=== PATIENT | female | born 1940 | race Caucasian/White ===

== ENCOUNTER 2018-06-20 10:09 | Emergency (ER) | payer OTHER, BC ==
[~2018-06-20] VITALS: Ht 160 cm; Wt 66.7 kg
[~2018-06-20 10:09] MED LIST: ALIGN4 MG PO; CELEBREX 200 M200 M1 PO; LIBRIUM PO; PAXIL 20 MG TAB20 M1 PO; PREDNISONE 20 M20 MG PO; PRILOSEC 20 MG20 MG PO; TOUJEO SOL300 UNIT/1 SUBQ; VITAMIN D2000 UNIT PO
[2018-06-20 10:33] LABS: ABSOLUTE NEUTROPHILS 10.1 thou/uL (1.4-8.2); BASOPHILS 1.2 % (0.0-2.0); EOSINOPHILS 0.9 % (0.0-3.0); HEMATOCRIT 34.5 % (37.0-47.0); LYMPHOCYTES 17.9 % (24.0-44.0); MCH 34.4 pg (26.0-34.0); MCHC 34.8 g/dL (28.0-37.0); MCV 98.7 fL (80.0-100.0); MONOCYTES 5.7 % (1.0-8.0); PLATELET COUNT 290 thou/uL (150-400); POLYS 74.3 % (36.0-66.0); RDW 16.7 % (10.5-14.5); WBC 13.5 thou/uL (4.0-11.0)
[2018-06-20 10:41] LABS: ANION GAP 12 mmol/L (7-16); BUN 10 mg/dL (7-18); CALCIUM 9.2 mg/dL (8.5-10.1); CHLORIDE 100 mmol/L (98-107); CO2 26 mmol/L (21-32); GLUCOSE 230 mg/dL (74-106); POTASSIUM 3.3 mmol/L (3.5-5.1); SODIUM 138 mmol/L (136-145)
[2018-06-20 10:49] LABS: ALBUMIN 3.7 g/dL (3.4-5.0); SGOT 20 U/L (15-37); SGPT 18 U/L (30-65); TOTAL BILIRUBIN 0.4 mg/dL (<0.1-1.0); TOTAL PROTEIN 7.4 g/dL (6.4-8.2); TROPONIN-I <0.06 ng/mL (<0.06)
[2018-06-20 11:14] LABS: PROTIME 10.5 Seconds (9.3-11.4)
[2018-06-20 12:03] LABS: URINE BILIRUBIN NEGATIVE (Negative); URINE BLOOD 3+ (Negative); URINE CLARITY CLEAR; URINE COLOR YELLOW; URINE GLUCOSE-RANDOM* NEGATIVE (Negative); URINE KETONES TRACE (Negative); URINE LEUKOCYTES-REFLEX TRACE (Negative); URINE NITRITE-REFLEX NEGATIVE (Negative); URINE PROTEIN (DIPSTICK) NEGATIVE (Negative); URINE UROBILINOGEN 0.2 E.U./dl (0.2-1.0)
[2018-06-20 12:07] LABS: URINE WBC-REFLEX 0-5 Rare /HPF (0-5)
[2018-06-20 12:08] LABS: BACTERIA-REFLEX None Seen /HPF (None Seen); CASTS None Seen /LPF (None Seen); CRYSTALS None Seen /LPF (None Seen); SQUAMOUS 0-3 Few /LPF (0-3); URINE RBC 3-10 Few /HPF (0-2)
[2018-06-20] MEDS ORDERED: SYNTHROID50 MCG PO (13:23)
[2018-06-20] MEDS ORDERED: LOTRIMIN AF12 GM TOP (13:23)
[2018-06-20 13:24] VITALS: BP 130/65
--- NOTE | 2018-06-21 08:19 | EKG ---
[address] [address] ELECTROCARDIOGRAM REPORT Name: JACKY REED [id number] ������������������ Admission: 06/20/18 ������������������ Attend Phys: Discharge: 06/20/18 ������������������ Date of : 40 Report #: [id number] ����������������������������������������������������������������� [id number] THIS REPORT FOR: //name// [facility] ED Test Date: 2018-06-20 Test Time: 10:20:38 Pat Name: JACKY REED Department: Room: Gender: F Mobile Phone Salesperson: : 1940 Requested By: Ciera Payne Order Number: [id number] MD: Dre Polk Measurements Intervals [place] Rate: 76 P: 3 AR: 145 QRS: 14 QRSD: 89 T: 46 QT: 389 QTc: 438 Interpretive Statements Sinus rhythm No previous ECG available for comparison Electronically Signed On 06-21-2018 8:18:57 CDT by Dre Polk [email or web address] ��������������������������������������������� <ELECTRONICALLY SIGNED> ���������������������������������������� By: Dre Polk MD ��������������������������������������������� 06/21/18 0818 1020 1020 Dre Polk MD /JON
== END 2018-06-20 13:39 | disposition home or self-care (01) ==
LOC: ER 10:09
PROVIDERS: Physician Assistant
DX: B35.6 Tinea cruris (principal); E03.9 Hypothyroidism, unspecified; R00.2 Palpitations; M79.7 Fibromyalgia; E11.9 Type 2 diabetes mellitus without complications; Z79.4 Long term (current) use of insulin; Z88.6 Allergy status to analgesic agent; Z88.8 Allergy status to other drugs, medicaments and biological substances

== ENCOUNTER 2020-04-20 10:30 | Emergency (ER) | payer OTHER, BC ==
[~2020-04-20] VITALS: Ht 160 cm; Wt 66.7 kg
[~2020-04-20 10:30] MED LIST changes: +LOTRIMIN AF12 GM TOP; +SYNTHROID50 MCG PO
[2020-04-20 12:19] LABS: ABSOLUTE NEUTROPHILS 13.2 thou/uL (1.4-8.2); BASOPHILS 0.6 % (0.0-2.0); EOSINOPHILS 0.3 % (0.0-3.0); HEMATOCRIT 33.8 % (37.0-47.0); HEMOGLOBIN 11.1 gm/dL (12.0-15.0); LYMPHOCYTES 9.7 % (24.0-44.0); MCH 32.2 pg (26.0-34.0); MCHC 32.8 g/dL (28.0-37.0); MCV 98.4 fL (80.0-100.0); MONOCYTES 4.5 % (1.0-8.0); PLATELET COUNT 377 thou/uL (150-400); POLYS 84.9 % (36.0-66.0); RBC 3.44 mil/uL (4.20-5.00); RDW 17.7 % (10.5-14.5); WBC 15.5 thou/uL (4.0-11.0)
[2020-04-20 12:31] LABS: ANION GAP 9 mmol/L (7-16); BUN 8 mg/dL (7-18); CALCIUM 9.5 mg/dL (8.5-10.1); CHLORIDE 93 mmol/L (98-107); CO2 27 mmol/L (21-32); GLUCOSE 387 mg/dL (74-106); POTASSIUM 4.3 mmol/L (3.5-5.1); SODIUM 129 mmol/L (136-145)
[2020-04-20 12:33] LABS: DIRECT BILIRUBIN 0.1 mg/dL (<0.1-0.2); TOTAL BILIRUBIN 0.6 mg/dL (0.2-1.0); TOTAL PROTEIN 7.8 g/dL (6.4-8.2)
[2020-04-20 12:40] LABS: TROPONIN-I <0.06 ng/mL (<0.06)
--- NOTE | 2020-04-20 12:48 | EKG ---
[address] [place] [address] [facility] [place] [address] ELECTROCARDIOGRAM REPORT Name: JACKY REED [facility] [id number] Admission: 04/20/20 Attend Phys: Discharge: Date of : 40 Report #: [id number] [facility] ED Test Date: 2020-04-20 Test Time: 11:41:56 Pat Name: JACKY REED Department: Room: Gender: F Delivery Driver/Customer Service: BELLA : 1940 Requested By: Robin Varghese Order Number: [id number] MD: Dre Polk Measurements Intervals [place] Rate: 85 P: 17 [place]: 141 QRS: -3 QRSD: 82 T: 40 QT: 338 QTc: 402 Interpretive Statements Sinus rhythm Abnormal R-wave progression, early transition Compared to ECG 06/20/2018 10:20:38 No significant changes Electronically Signed On 04-20-2020 12:48:40 DINKEY MOTOR OPERATOR by Dre Polk [email or web address] <ELECTRONICALLY SIGNED> By: Dre Polk MD 04/20/20 1248 1141 1141 Dre Polk MD /JON
[2020-04-20 13:32] VITALS: BP 124/60
== END 2020-04-20 13:33 | disposition left against medical advice (07) ==
LOC: ER 10:30
PROVIDERS: Nurse Practitioner
DX: E87.1 Hypo-osmolality and hyponatremia (principal); D72.829 Elevated white blood cell count, unspecified; E11.65 Type 2 diabetes mellitus with hyperglycemia; M79.7 Fibromyalgia; Z88.1 Allergy status to other antibiotic agents; Z88.6 Allergy status to analgesic agent; Z88.8 Allergy status to other drugs, medicaments and biological substances; Z79.899 Other long term (current) drug therapy; Z79.4 Long term (current) use of insulin

== ENCOUNTER 2020-09-04 17:51 | Inpatient (IN) | payer OTHER, BC ==
[~2020-09-04] VITALS: Ht 160 cm; Wt 57.8 kg
[2020-09-04 17:52] VITALS: BP 162/73
--- NOTE | 2020-09-04 19:14 | NUR ---
PER DAYSHIFT RN, PT HAS REFUSED BLOOD DRAW AND URINE SAMPLE SINCE ARRIVAL.
[2020-09-04 19:49] LABS: HEMATOCRIT 35.5 % (37.0-47.0); MCH 33.7 pg (26.0-34.0); MCV 99.1 fL (80.0-100.0); PLATELET COUNT 324 thou/uL (150-400); RBC 3.58 mil/uL (4.20-5.00); RDW 15.6 % (10.5-14.5)
[2020-09-04 19:52] LABS: CALCIUM 9.1 mg/dL (8.5-10.1); CREATININE 0.9 mg/dL (0.6-1.0); POTASSIUM 3.8 mmol/L (3.5-5.1)
[2020-09-04 20:07] LABS: ABSOLUTE NEUTROPHILS 15.8 thou/uL (1.4-8.2)
[2020-09-04 20:08] LABS: PLATELET ESTIMATE NORMAL
[2020-09-04 21:23] LABS: URINE BILIRUBIN NEGATIVE (Negative); URINE BLOOD TRACE (Negative); URINE CLARITY CLEAR; URINE COLOR YELLOW; URINE GLUCOSE-RANDOM* NEGATIVE (Negative); URINE KETONES 1+ (Negative); URINE LEUKOCYTES-REFLEX NEGATIVE (Negative); URINE NITRITE-REFLEX NEGATIVE (Negative); URINE PROTEIN (DIPSTICK) NEGATIVE (Negative); URINE UROBILINOGEN 0.2 E.U./dl (0.2-1.0)
[2020-09-04 21:30] VITALS: BP 191/74
[2020-09-04 21:45] VITALS: BP 191/74
[2020-09-05] VITALS (10 sets, daily range): BP systolic 111–145; BP diastolic 54–96
[2020-09-05] MEDS ORDERED: LEVO-T75 MCG PO (02:54)
[2020-09-05] MEDS ORDERED: CHLORDIAZEPOXIDE5 M2 PO (02:59)
[2020-09-05] MEDS ORDERED: TOUJEO MAX300 UNIT/1 SUBQ (03:14)
[2020-09-05] MEDS ORDERED: APAP W/CODEINE1 TA2 PO (03:15)
--- NOTE | 2020-09-05 03:59 | NUR ---
RECEIVED CARE OF THIS PATIENT AT 2240 VIA CART FROM ED ACCOMPANINED BY ED VALERIE. C/O PAIN, MED GIVEN. ALYSE PATENT. NPO SINCE [place] FOR SURGERY ON L HIP IN AM. ALERT AND ORIENTED X4. REMAINS ON BED REST. SLEPT LITTLE THIS SHIFT.
[2020-09-05 05:20] LABS: HEMATOCRIT 34.9 % (37.0-47.0); HEMOGLOBIN 11.9 gm/dL (12.0-15.0); MCH 34.3 pg (26.0-34.0); MCHC 34.1 g/dL (28.0-37.0); MCV 100.3 fL (80.0-100.0); RBC 3.48 mil/uL (4.20-5.00); RDW 15.6 % (10.5-14.5)
[2020-09-05 05:47] LABS: CALCIUM 8.7 mg/dL (8.5-10.1); CREATININE 0.9 mg/dL (0.6-1.0); POTASSIUM 3.8 mmol/L (3.5-5.1)
--- NOTE | 2020-09-05 08:09 | NUR ---
ORDERS RECEIVED FOR PT EVAL AND TREAT. Pt S/P FALL W/ L FEMORAL NECK FRACTURE. PLAN IS FOR HIP HEMIARTHROPLASTY THIS MORNING. WILL NEED NEW PT ORDERS S/P SURGICAL INTERVENTION TO INITIATE PT W/ Pt. THANK YOU.
--- NOTE | 2020-09-05 08:18 | NUR ---
ASSUMED PT CARE AROUND 0700. PT ALERT X ORIENTED X 4. ON ROOM AIR. NPO SINCE MIDNIGHT FOR SURGERY. VSS. CULLEN IN PLACE. IV LEFT FA.
[2020-09-05 11:10] LABS: HEMATOCRIT 35.4 % (37.0-47.0); HEMOGLOBIN 11.5 gm/dL (12.0-15.0); MCH 33.2 pg (26.0-34.0); MCHC 32.6 g/dL (28.0-37.0); MCV 101.8 fL (80.0-100.0); RBC 3.48 mil/uL (4.20-5.00); RDW 15.7 % (10.5-14.5)
[2020-09-05 11:20] LABS: WBC 36.3 thou/uL (4.0-11.0)
--- NOTE | 2020-09-05 11:23 | EKG ---
[address] [address] ELECTROCARDIOGRAM REPORT Name: JACKY REED Room #: 439-P [facility] IN ..#: [id number] Admission: 09/04/20 Attend Phys: Navarro Poon MD Discharge: Date of : 40 Report #: [id number] [facility] ED Test Date: 2020-09-04 Test Time: 20:35:34 Pat Name: JACKY REED Department: Room: 43 Gender: F Sharepoint Analyst: HOSSEIN : 1940 Requested By: Shira Lopez Order Number: [id number] MD: Dre Polk Measurements Intervals [place] Rate: 83 P: 64 [place]: 147 QRS: 24 QRSD: 87 T: 56 QT: 384 QTc: 452 Interpretive Statements Sinus rhythm Compared to ECG 04/20/2020 11:41:56 No significant changes Electronically Signed On 09-05-2020 11:23:46 CDT by Dre Polk [email or web address] <ELECTRONICALLY SIGNED> By: Dre Polk MD 09/05/20 1123 2035 34 Dre Polk MD /JON
[2020-09-05 13:52] LABS: HEMATOCRIT 33.1 % (37.0-47.0); HEMOGLOBIN 10.8 gm/dL (12.0-15.0); MCH 32.6 pg (26.0-34.0); MCHC 32.5 g/dL (28.0-37.0); MCV 100.3 fL (80.0-100.0); PLATELET COUNT 351 thou/uL (150-400); RDW 15.9 % (10.5-14.5); WBC 32.9 thou/uL (4.0-11.0)
[2020-09-05 14:09] LABS: ABSOLUTE NEUTROPHILS 30.6 thou/uL (1.4-8.2)
[2020-09-06 03:20] VITALS: BP 125/49
[2020-09-06 05:11] LABS: MCH 34.2 pg (26.0-34.0); MCHC 33.8 g/dL (28.0-37.0); MCV 101.3 fL (80.0-100.0); RBC 2.56 mil/uL (4.20-5.00)
[2020-09-06 05:31] LABS: HEMOGLOBIN 8.8 gm/dL (12.0-15.0); WBC 16.6 thou/uL (4.0-11.0)
--- NOTE | 2020-09-06 05:31 | NUR ---
PT LYING IN BED. LORTAB PROVIDING PAIN RELIEF. DENIES NAUSEA. RESTING CVOMFORTABLY. NO NEEDS VOICED. CALL LIGHT WITHIN REACH. FREQUENT OBSERVATION.
[2020-09-06 07:20] VITALS: BP 102/39
--- NOTE | 2020-09-06 11:11 | NUR ---
Assumed care of pt at 0700. Pt a&ox4. Dressing c/d/i. [place] catheter in place. Pain controlled with prn pain meds. DOLORES hose and SCDs in place. Call light within reach. Fall precautions in place. Will continue to monitor.
[2020-09-06 15:40] VITALS: BP 125/40
[2020-09-06 19:41] VITALS: BP 115/53
--- NOTE | 2020-09-07 01:25 | NUR ---
ASSESSED AT START OF SHIFT. PT RESTING IN BED. BSG CHECKED AND INSULIN GIVEN. FOLLEY INTACT AND DRAINING. PAIN MEDS GIVEN PRIOR TO ARRIVAL. PT DENIES N/V. FALL PREC IN PLACE, SCD'S ON ESTEPHANIE LOWER EXT. PT RESTING WELL NO FURTHER SIGNS OF DISCOMFORT WILL CONT TO MONITOR.
[2020-09-07 04:02] VITALS: BP 119/48
[2020-09-07 05:48] LABS: HEMATOCRIT 23.9 % (37.0-47.0); HEMOGLOBIN 8.1 gm/dL (12.0-15.0); MCH 34.3 pg (26.0-34.0); MCV 100.8 fL (80.0-100.0); RBC 2.37 mil/uL (4.20-5.00); RDW 15.7 % (10.5-14.5); WBC 13.1 thou/uL (4.0-11.0)
[2020-09-07 08:00] VITALS: BP 117/48
--- NOTE | 2020-09-07 10:46 | NUR ---
ASSUMED CARE OF PT AT 0700 THIS MORNING. PT IS ADMITTED FOR LEFT HIP FX AND REPAIR. WEIGHT TOLERATED. PT IS FROM HOME AND IS VERY SLOW TO RESPOND TO QUESTIONS AND HAS TO BE REDIRECTED SEVERAL TIMES DURING ANY TASKS THAT WERE NEEDED TO BE DONE. PT WAS WORKING WITH OT AND IS VERY CONCERNED THAT SHE LIVES AT HOME ALONE AND STILL DRIVES. OT CONSULTING WITH CASE MANAGEMENT. BRIAN DRESSING ON LEFT HIP AREA C/D/I. CULLEN IN PLACE. ASSESSMENTS CHARTED AND OTHERWISE UNREMARKABLE. IV IN LEFT HAND SL. CALL LIGHT AND OTHER NEEDS ARE PLACED WITHIN REACH. MEDS AND TX GIVEN NEEDED AND SCHEDULED.
--- NOTE | 2020-09-07 11:38 | NUR ---
met with patient who is A/Ox4 admits post fall. patient reports she resides in independent home with all needs on one level. Patient reports she has cane and walker but does not use. She cont to drive. PCP Dr Warner. Patient reports closest relatives are in [place] and unable to assist. Therapy eval in process. 5N eval in process.
--- NOTE | 2020-09-07 15:48 | NUR ---
RN agrees with TOP LIFT AND AUTOMATIC WINDOW REPAIRER assessment.
[2020-09-07 16:34] VITALS: BP 149/60
[2020-09-07 19:43] VITALS: BP 111/51
--- NOTE | 2020-09-08 03:50 | NUR ---
RECEIVED CARE OF THIS PATIENT AT 1900. PATIENT ALERT AND ORIENTED X4. REMAINS ON BEDREST WITH A CULLEN THAT IS PATENT YELLOW URINE. ACCUCHECK WAS 239, RECEIVED 4 UNITS LISPRO INSULIN.C/O PAIN, MED GIVEN. SLEPT OFF AND ON DURING NIGHT.
[2020-09-08 06:58] LABS: HEMATOCRIT 22.3 % (37.0-47.0); HEMOGLOBIN 7.5 gm/dL (12.0-15.0); MCHC 33.9 g/dL (28.0-37.0); MCV 100.4 fL (80.0-100.0); RBC 2.22 mil/uL (4.20-5.00); RDW 15.9 % (10.5-14.5); WBC 11.4 thou/uL (4.0-11.0)
[2020-09-08 08:31] LABS: CALCIUM 8.3 mg/dL (8.5-10.1); CREATININE 0.7 mg/dL (0.6-1.0); POTASSIUM 3.8 mmol/L (3.5-5.1)
--- NOTE | 2020-09-08 12:21 | NUR ---
ASSUMED CARE OF PT AT 0700 THIS MORNING. PT WAS ADMITTED FOR HIP FX AND REPAIR. PT IS SLOW TO RESPOND TO ANSWERING QUESTIONS BUT IS A/OX4. RIGHT HIP HAS INCISION WITH BRIAN DRESSING AND ICE PACKS. PT IS AMBULATORY WITH WEIGHT TOLERATED. ASSESSMENT FINDINGS CHARTED AND OTHERWISE UNREMARKABLE. IV IN LEFT HAND WITH SL. CASE MANAGEMENT IS WORKING TO FIND ALTERNATIVE LIVING SITUATION DUE TO HIGHER INCIDENTS OF FALLING. CALL LIGHT AND OTHER NEEDS ARE PLACED WITHIN REACH. MEDS AND TX GIVEN NEEDED AND SCHEDULED.
--- NOTE | 2020-09-08 13:47 | NUR ---
ON-GOING ASSESSMENT: CM REVIEWED CHART AND SPOKE WITH PATIENT. CM PROVIDED PT WITH ANOTHER SNF LIST. SHE STATES SHE WANTS TO REVIEW IT FOR A LITTLE WHILE. CM WILL COME BACK TO DISCUSS.
[2020-09-08 16:49] VITALS: BP 129/49
[2020-09-08 20:12] VITALS: BP 120/50
--- NOTE | 2020-09-09 03:11 | NUR ---
RECEIVED CARE OF THIS PATIENT AT 1900. PATIENT ALERT AND ORIENTED X4. UP TO BSC WITH ASSIST OF ONE. ACCUCHECK WAS 180. RECEIVED 3 UNITS LISPRO INSULIN. C/O PAIN, MED GIVEN. SLEPT MOST OF NIGHT.
[2020-09-09 08:26] VITALS: BP 134/51
[2020-09-09 10:20] LABS: HEMATOCRIT 25.6 % (37.0-47.0); HEMOGLOBIN 8.4 gm/dL (12.0-15.0); MCH 33.4 pg (26.0-34.0); MCV 101.5 fL (80.0-100.0); RBC 2.53 mil/uL (4.20-5.00); RDW 16.2 % (10.5-14.5); WBC 13.2 thou/uL (4.0-11.0)
[2020-09-09 10:40] LABS: CALCIUM 8.8 mg/dL (8.5-10.1); CREATININE 0.8 mg/dL (0.6-1.0); MAGNESIUM 1.7 mg/dL (1.8-2.4); POTASSIUM 3.6 mmol/L (3.5-5.1)
--- NOTE | 2020-09-09 11:02 | O ---
[facility] [place] [address] [address] OPERATIVE REPORT Name: JACKY REED Room #: 439-P [facility] IN .R.#: [id number] Admission: 09/04/20 Attend Phys: Pramod Castellanos MD Discharge: Date of : 40 Report #: [id number] THIS REPORT FOR: cc: Kishore Warner MD, Mark S. MD Kneidel, Matthew T. MD ~ DOC #: [id number] Clarence Lin MD DATE OF SERVICE: 09/05/2020 PREOPERATIVE DIAGNOSIS: Left femoral neck fracture. POSTOPERATIVE DIAGNOSIS: Left femoral neck fracture. PROCEDURE: Left hip hemiarthroplasty. SURGEON: Clarence Lin MD BOLT MAKER: None. ANESTHESIA: General. ESTIMATED BLOOD LOSS: Minimal. No drains. TOURNIQUET TIME: Zero. ESTIMATED BLOOD LOSS: 300 mL. DRAINS: No drains. COMPLICATIONS: No complications. DESCRIPTION OF PROCEDURE: The patient was brought to the operating room where she was placed under general anesthesia. Once under adequate general anesthesia, she was placed into a lateral decubitus position on the operative table. The patient's left hip was then prepped and draped in a sterile manner. A 14 cm incision was then made overlying the tip of the greater trochanter. Dissection was carried down to the tensor fascia, which was incised in line with the incision exposing the posterior aspect of the hip. A posterior approach was then achieved elevating the piriformis along with the joint capsule. Any hematoma was evacuated from the fracture site and the femoral head was then removed utilizing a Claros elevator. Once removed, the femoral neck was cut to length. The femoral head was sized as a 42 mm head and subsequent reaming and broaching of the femoral canal to a size 6 cemented stem was achieved. Trial components were placed. This did appear to be very stable. Therefore, the femoral canal was prepared for cementation and the final components were placed [address] [address] OPERATIVE REPORT Name: BHARATH REEDDevin Supriya Room #: 439-P [facility] IN [facility]#: [id number] Admission: 09/04/20 Attend Phys: Pramod Castellanos MD Discharge: Date of : 40 Report #: [id number] with cement. A size 6 cemented femoral stem with a 42 mm head. The wound was irrigated once again copiously and the capsular layer was closed with #2 FiberWire. A #5 FiberWire was used to repair the piriformis back to its place in its fossa. The wound was irrigated once again copiously and closed with #1 Vicryl in the tensor fascia, 2-0 Vicryl in the subcutaneous tissues and pilo were used for the skin. The wounds were dressed with Xeroform, 4 x 4's, and sterile soft compressive dressing was placed. There were no complications from the procedure. The patient tolerated the procedure well and was taken to recovery room without incident. MD ARABELLA Whipple/[facility] <ELECTRONICALLY SIGNED> By: Clarence Lin MD 09/09/20 1102 0855 0916 Clarence Lin MD /nt
--- NOTE | 2020-09-09 12:03 | NUR ---
ON-GOING ASSESSMENT: CM REVIEWED CHART AND SPOKE WITH ATTENDING. PT IS PROGRESSING TOWARDS DISCHARGE GOALS BUT NOT STABLE FOR DISCHARGE AT THIS TIME. PER ATTENDING PT IS ANEMIC TODAY. CM SPOKE WITH PATIENT ABOUT RECOMMENDATION FOR SNF AND IF SHE HAD A CHANCE TO REVIEW LIST AND WANTED ANY REFERRALS SENT. PT REQUESTED REFERRAL BE SENT TO [facility]. CM FAXED REFERRAL AND LIASON REPORTS SHE WILL REVIEW SOON.
--- NOTE | 2020-09-09 15:25 | HC ---
[facility] [place] [address] CONSULTATION Name: JACKY REED Room #: 439-P [facility] IN .R.#: [id number] Admission: 09/04/20 Attend Phys: Pramod Castellanos MD Discharge: Date of : 40 Report #: [id number] THIS REPORT FOR: cc: Kishore Warner MD, Mark S. MD Deardorff, Valerie A. MD ~ DOC #: [id number] Poonam Rush MD REASON FOR CONSULTATION: Left hip fracture. HISTORY OF PRESENT ILLNESS: The patient is an 80-year-old female who was running some errands yesterday and fell. She was helped up by some people, continue to get her prescriptions and then had significant hip pain. She drove herself home. Pain gradually worsened and was then brought by EMS. She denied loss of consciousness. Denies any other musculoskeletal complaints. REVIEW OF SYSTEMS: MUSCULOSKELETAL: See HPI. NEUROLOGIC: Denies numbness or tingling. PAST MEDICAL HISTORY: Significant for fibromyalgia, anxiety, diabetes, hypothyroidism, gastroesophageal reflux disease and depression. MEDICATIONS: Include levothyroxine, clotrimazole. Reported medications include ____, omeprazole, paroxetine, Celebrex and Librium. ALLERGIES: INSULIN, METFORMIN, NSAIDS, STATINS, TIZANIDINE AND TRICYCLIC COMPOUNDS. PAST SURGICAL HISTORY: Right knee arthroscopy done in approximately 1979. SOCIAL HISTORY: She lives alone, has 1 or 2 cats, reports living in a ranch style home. Uses a cane occasionally. Denies smoking or drinking alcohol. She does not have any family. LABORATORY DATA: Laboratory studies done on 09/05/2020 show white blood cell count 14, hemoglobin 11.9, hematocrit 34.9, platelet count 328. Chemistry is grossly normal except for an elevation in glucose at 156. COVID test is negative. PHYSICAL EXAMINATION: GENERAL: The patient is awake, alert and oriented. She is a well-developed, well-nourished female in no acute distress. She is lying in her hospital bed. She converses well and has normal affect. VITAL SIGNS: Most recent vital signs showed temperature of 37.1, heart rate is [facility] [address] [place] [address] CONSULTATION Name: JACKY REED Room #: [address] [place] [address] [place] [facility].#: [id number] Admission: 09/04/20 Attend Phys: Pramod Castellanos MD Discharge: Date of : 40 Report #: [id number], respiratory rate 18, blood pressure 145/71, and pulse oximetry 96% on room air. EXTREMITIES: Examination of her bilateral upper extremities, grossly neurovascularly intact, grossly normal motor and sensory. She moves her upper extremities without significant pain. She reports bilateral rotator cuff issues and has some pain with her shoulders that this is not new since the injury. Bilateral lower extremities show left shortened lower extremity. Bilaterally grossly normal motor and sensory intact. She has no tenderness to palpation throughout the bilateral knees, legs, ankles or feet. She does report a bruise with some mild tenderness on the right calf area. No pain with right hip, knee or ankle range of motion. No pain with left knee or ankle range of motion. There is a moderate amount of pain with left hip range of motion. IMAGING: AP pelvis and AP and lateral of the left hip show a displaced subcapital femoral neck fracture. IMPRESSION AND PLAN: Left hip subcapital femoral neck fracture that is displaced. Recommend surgical stabilization. My partner, Dr. Clarence Lin, is already on the schedule to do that for her today at 8:30 in the morning. We discussed the typical procedure as well as postoperative course. The risks, benefits, alternatives and complications were discussed including but not limited to hardware problems, hip dislocation, decreased ambulatory level, leg length inequality, infection, damage to vessels or nerves. Informed consent was obtained. I discussed ____ Dr. Lin will also speak with her. Questions were encouraged and answered to the best of my ability. MD JHONNY Bauer/KEANU/JESSICA <ELECTRONICALLY SIGNED> By: Poonam Rush MD 09/09/20 1525 0611 0856 Poonam Rush MD /nt
[2020-09-09 17:21] VITALS: BP 121/53
--- NOTE | 2020-09-09 18:13 | NUR ---
Pt. came to [facility] [address] from OR. She was on room air. IV in right hand and left foot. Dced IV in left foot so pt could were grippy socks when ambulating to the restroom. Gave IV antibiotics. Pt did not request any pain medication. Active bowel sounds. Aquacell drsg on right shoulder is C/D/I. Pt. right arm is in a sling. She has an ice pack for pain. Side rails up X 2. Bed in low position. Call light within reach. Will continue to monitor pt. this shift.
--- NOTE | 2020-09-09 19:09 | NUR ---
Assumed care of pt at 0700. Pt a&ox4. Pain controlled with prn pain meds. Dressing c/d/i. Possible SNF vs 5N. 1x assist to the chair with walker and gait-belt. Call light within reach. Fall precautions in place. Report given to abdelrahman HAND.
[2020-09-09 19:24] VITALS: BP 139/57
[2020-09-10 07:40] VITALS: BP 117/62
[2020-09-10 07:48] LABS: CREATININE 0.8 mg/dL (0.6-1.0); MAGNESIUM 2.1 mg/dL (1.8-2.4); POTASSIUM 4.2 mmol/L (3.5-5.1)
[2020-09-10 07:53] LABS: HEMATOCRIT 22.1 % (37.0-47.0); HEMOGLOBIN 7.5 gm/dL (12.0-15.0); MCH 33.9 pg (26.0-34.0); MCHC 33.7 g/dL (28.0-37.0); MCV 100.7 fL (80.0-100.0); RBC 2.2 mil/uL (4.20-5.00); RDW 15.8 % (10.5-14.5); WBC 11.4 thou/uL (4.0-11.0)
--- NOTE | 2020-09-10 10:57 | NUR ---
Nutrition consult r/t LOS 7 days tomorrow. Pt is noted with healing L hip s/p ORIF. She reports fall over 3 months ago that had her bedbound for extended period which resulted in some weight loss at that time. UBW 135# per pt. Currently at 127#. Intakes avg 50% at meals. Gets Enusre with breakfast and dinner with good intakes reported. No c/o chewing/swallowing issues. Voiced no other nutrition concerns. Will d/c to rehab or SNF before returning home. Low nutrition risk.
--- NOTE | 2020-09-10 11:35 | NUR ---
ASSUMED PT CARE THIS AM. PT IS ALERT & ORIENTED X2,3 AND FORGETFUL AT TIMES. PT HAS NO IV. PT HAS BRIAN DRESSING AND SCD ON. PT IS ON ROOM AIR. PT IS ACCUCHECK ACHS. PT TOLERATED MEDICATION AND DIET WELL DURING THE SHIFT. NO C/O OF PAIN, NAUSEA AND VOMITING. PT ON THE BED, BED ON THE LOWEST POSITION, SIDE RAILS UP, CALL LIGHT WITHIN REACH. WILL CONTINUE TO MONITOR PT. FOLLOW POC.
--- NOTE | 2020-09-10 12:56 | NUR ---
ON-GOING ASSESSMENT: CM REVIEWED CHART AND SPOKE WITH ATTENDING. PT IS PROGRESSING TOWARDS DISCHARGE GOALS. CM SPOKE WITH LIASON FROM [facility] WHO REPORTS THEY CAN ACCEPT PATIENT AND WILL HAVE A BED OPEN TOMORROW. TENTATIVE PLANS TO DISCHARGE TOMORROW TO [facility]. CM WILL CONTINUE TO FOLLOW.
[2020-09-10 13:23] LABS: % SATURATION 20 % (20-39); IRON 41 ug/dL (50-170); TIBC 210 ug/dL (250-450)
[2020-09-10 13:51] LABS: FOLIC ACID 7.6 ng/mL (8.6-58.9)
[2020-09-10 17:12] VITALS: BP 139/52
[2020-09-10 20:11] VITALS: BP 172/85
--- NOTE | 2020-09-11 03:38 | NUR ---
ASSESSMENT: PT REMAIN ALERT AND ORIENT TIMES 2-3. FORGETFUL AT TIMES. UP TO BSC WITH GB AND WALKER. POSSIBLE DC TO [facility] TODAY. GAUZE INTACT ON RIGHT HIP. VSS, AFEBRILE. DENIES PAIN AND REFUSED OFFER FOR HYDROCODONE. SLOW PROGRESS TOWARDS DC GOALS. WILL CONTINUE TO MONTIOR.
[2020-09-11 08:23] VITALS: BP 127/58
[2020-09-11 09:57] LABS: HEMATOCRIT 23.8 % (37.0-47.0); MCH 33.9 pg (26.0-34.0); MCHC 33.6 g/dL (28.0-37.0); MCV 100.9 fL (80.0-100.0); RBC 2.36 mil/uL (4.20-5.00); RDW 15.6 % (10.5-14.5); WBC 11.7 thou/uL (4.0-11.0)
--- NOTE | 2020-09-11 10:10 | NUR ---
ASSUMED PT CARE THIS AM. PT IS ALERT & ORIENTED X4 BUT FORGETFUL AT TIME AND SLOW TO RESPOND. PT HAS NO IV. PT IS ACCUCHECK ACHS. PLACED DRESSING ON L HIP YESTERDAY. PT IS ON ROOM AIR. PT TOLERATED DIET AND MEDICATION WELL. NO C/O OF PAIN, NAUSEA AND VOMITING DURING THE SHIFT. PT ON THE BED, BED ON THE LOWEST POSITION, SIDE RAILS UP, CALL LIGHT WITHIN REACH. WILL CONTINUE TO MONITOR PT. FOLLOW POC.
[2020-09-11] MEDS ORDERED: NORCO7.5 PO (14:03)
[2020-09-11] MEDS ORDERED: FOLIC ACID1 MG PO (14:24)
[2020-09-11] MEDS ORDERED: B-12500 MCG PO (14:24)
--- NOTE | 2020-09-11 14:41 | NUR ---
ON-GOING ASSESSMENT: CM REVIEWED CHART. PT IS STABLE TO DISCHARGE TO SNF. [facility] CAN ACCEPT PATIENT. CM FAXED D/C PAPERWORK AND CONFIRMED THEY RECEIVED IT. BEDSIDE RN HAS THE NUMBER FOR REPORT. CM ORDERED CHART COPY. PT IS AGREEABLE WITH PLAN. TRANSPORTATION HAS BEEN ARRANGED BY [facility] FOR AROUND 1530. CM NOTIFIED PT AND BEDSIDE RN. PT REPORTS NO FURTHER QUESTIONS. PT REPORTS NOONE NEEDS TO BE NOTIFIED AT DISCHARGE SHE HAS NOTIFIED HER NEIGHBOR.
== END 2020-09-11 15:43 | DRG 522 ==
LOC: ER 17:51 → 4S 21:12 → EROBS 21:12 → 4S 22:45
PROVIDERS: Emergency Medicine; Internal Medicine; Nurse Practitioner Family; Orthopaedic Surgery Foot and Ankle Surgery; ADMIT Hospitalist; ATTEND Hospitalist
PROC: 0SRS0J9 Replacement of Left Hip Joint, Femoral Surface with Synthetic Substitute, Cemented, Open Approach (ICD-10-PCS; principal; 2020-09-05)
DX: S72.012A Unspecified intracapsular fracture of left femur, initial encounter for closed fracture (principal); D62 Acute posthemorrhagic anemia; E11.9 Type 2 diabetes mellitus without complications; F41.9 Anxiety disorder, unspecified; E03.9 Hypothyroidism, unspecified; K21.9 Gastro-esophageal reflux disease without esophagitis; F32.9 Major depressive disorder, single episode, unspecified; M79.7 Fibromyalgia; Z60.2 Problems related to living alone; Z20.822 Contact with and (suspected) exposure to COVID-19; Z47.89 Encounter for other orthopedic aftercare; W18.39XA Other fall on same level, initial encounter; Z79.4 Long term (current) use of insulin; Z88.8 Allergy status to other drugs, medicaments and biological substances; Y93.89 Activity, other specified; Y92.89 Other specified places as the place of occurrence of the external cause; Y99.8 Other external cause status
CPT/HCPCS: 10195; 50101; 50382; 50414; 51057; 51130; 51225; 51226; 51412; 53000; 56525; 56530; 56531; 57116; 57117; 62110; 62900; 70005